=== PATIENT | male | born 1945 | race Caucasian/White ===

== ENCOUNTER 2022-02-14 07:47 | Inpatient (IN) | payer OTHER ==
[2022-02-14] VITALS (46 sets, daily range): BP systolic 85–135; BP diastolic 44–80
[~2022-02-14] VITALS: Ht 177.8 cm; Wt 84.8 kg
[~2022-02-14 07:47] MED LIST: ASPI325T4 PO; CALC500C71 PO; CALC600T10 PO; FER325T PO; GLIP10TA9 PO; GLYC1TAB18 PO; LISI20TA28 PO; METF-490 PO; MYCO500T PO; OMEG100078 PO; OYST500T29 PO; PEDICHW PO; PRE5T PO; PYRI60TA3 PO
[2022-02-14] MEDS ORDERED: cefTRIAXone 1GM/50ML D5W 50 ML IV ONE (08:15)
[2022-02-14] MEDS ORDERED: AZITHROMYCIN 500MG/ 250ML 250 ML IV ONE (08:15)
[2022-02-14] MEDS ORDERED: methylPREDNISolone SOD SUCC 125 MG/2 ML VL IV ONE (08:15)
[2022-02-14 08:39] LABS: Red Cell Distribution Width 14.4 % (11.8-14.3)
[2022-02-14 08:41] LABS: Hematocrit 36.6 % (41.0-53.0); Hemoglobin 12.3 g/dL (13.5-17.5); Mean Corpuscular Hgb Conc. 33.7 g/dL (32.0-36.0); Mean Corpuscular Volume 80.2 fL (80.0-100.0); Red Blood Cells 4.57 10^6/uL (4.5-5.90); White Blood Cell 16.5 10^3/uL (4.4-10.8)
[2022-02-14 08:44] LABS: Band Neutrophils % (manual) 0; Basophils % (manual) 0 (0.0-2.0); Blast Cells 0; Eosinophils % (manual) 0 (0-7); Lymphocytes % (manual) 0 (10.0-50.0); Metamyelocytes % 0; Myelocytes % 0; Promyelocytes % 0; Reactive Lymphocytes 0
[2022-02-14 09:01] LABS: Monocytes % (manual) 4 (0-12)
[2022-02-14 09:04] LABS: INR 1.22 (0.9-1.15); Partial Thromboplastin Time 26.2 sec (23.6-33.0)
[2022-02-14 09:15] LABS: Albumin 3.2 g/dL (3.4-5.0); BUN/Creatinine Ratio 13.3; Calcium 8.3 mg/dL (8.5-10.1); Potassium 3.6 mmol/L (3.5-5.1)
[2022-02-14] MEDS ORDERED: MAGNESIUM SULFATE 1GM/100ML 100 ML IV ONE (09:15)
[2022-02-14] MEDS ORDERED: LORazepam 2MG/ML-1ML VIAL IV ONE (09:15)
[2022-02-14 09:24] LABS: Bilirubin, Total 1.1 mg/dL (0.2-1.0); Total Protein 7.3 g/dL (6.4-8.2)
[2022-02-14] MEDS ORDERED: ETOMIDATE (2MG/ML) 20ML VIAL IV ONE ×2 (10:22→10:30)
[2022-02-14] MEDS ORDERED: MIDAZOLAM DRIP 50 mg/50mL 50 ML IV ONE (10:22)
[2022-02-14] MEDS ORDERED: SUCCINYLCHOLINE CHLORIDE 20 MG/ML 10ML VIAL IV ONE ×2 (10:23→10:30)
[2022-02-14] MEDS: PROPOFOL 100 ML IV SCH (10:30)
[2022-02-14] MEDS: MIDAZOLAM DRIP 50 mg/50mL 50 ML IV SCH ×3 (10:32→14:30)
[2022-02-14] MEDS ORDERED: PROPOFOL 100 ML IV ONE (10:51)
[2022-02-14] MEDS ORDERED: FUROSEMIDE 40 MG/4 ML VIAL IV ONE (12:00)
[2022-02-14] MEDS ORDERED: DexAMETHasone SOD PHOS 10MG/1ML VIAL INJ IV ONE (12:00)
[2022-02-14] MEDS ORDERED: ALBUMIN 25% 50 ML IV ONE (12:00)
[2022-02-14] MEDS ORDERED: SODIUM CHLORIDE 0.9% 1,000 ML IV ONE (12:00)
[2022-02-14] MEDS ORDERED: DEXTROSE (50%) 50ML SYRG IV PRN (12:15)
[2022-02-14 12:57] LABS: Cholesterol 97 mg/dL (< 200); HDL Cholesterol 43 mg/dL (40-59); LDL Cholesterol 46 mg/dL (< 100); Triglycerides 96 mg/dL (< 150)
[2022-02-14] MEDS: NOREPINEPHRINE 8 MG/250ML KIT 250 ML IV SCH (13:15)
[2022-02-14] MEDS ORDERED: NOREPINEPHRINE 8 MG/250ML KIT 250 ML IV SCH ×2 (13:30→13:45)
[2022-02-14] MEDS: ACCU-CHEK COMFORT CURVE STRIP VI SCH (18:23)
[2022-02-14] MEDS: InsuLIN REG 1unit/0.01ml Soln (100units/ml) SC SCH (18:27)
[2022-02-15] VITALS (93 sets, daily range): BP systolic 84–173; BP diastolic 47–84
[2022-02-15] MEDS: MIDAZOLAM DRIP 50 mg/50mL 50 ML IV SCH ×4 (02:30→16:41)
[2022-02-15] MEDS: PROPOFOL 100 ML IV SCH ×3 (02:31→19:41)
[2022-02-15 05:17] LABS: Basophils # (auto) 0 10 ^3/uL (0-0.2); Basophils % (auto) 0.2 % (0.0-2.0); Eosinophils # (auto) 0 10 ^3/uL (0-0.8); Hematocrit 32.9 % (41.0-53.0); Hemoglobin 11.1 g/dL (13.5-17.5); Lymphocytes # (auto) 0.3 10 ^3/uL (0.4-5.4); Lymphocytes % (auto) 1.6 % (10.0-50.0); Mean Corpuscular Hemoglobin 27.6 pg (28.0-32.0); Mean Corpuscular Hgb Conc. 33.8 g/dL (32.0-36.0); Mean Corpuscular Volume 81.5 fL (80.0-100.0); Monocytes # (auto) 0.8 10 ^3/uL (0-1.3); Monocytes % (auto) 4.6 % (0.0-12.0); Neutrophils # (auto) 15.7 10 ^3/uL (1.6-8.6); Neutrophils % (auto) 93.6 % (37.0-80.0); Red Blood Cells 4.04 10^6/uL (4.5-5.90); Red Cell Distribution Width 14.7 % (11.8-14.3); White Blood Cell 16.8 10^3/uL (4.4-10.8)
[2022-02-15 05:33] LABS: Albumin 2.7 g/dL (3.4-5.0); Calcium 8.1 mg/dL (8.5-10.1); Potassium 4.1 mmol/L (3.5-5.1)
[2022-02-15 05:36] LABS: BUN/Creatinine Ratio 18.4
[2022-02-15 05:43] LABS: Bilirubin, Total 0.4 mg/dL (0.2-1.0); Total Protein 6.5 g/dL (6.4-8.2)
[2022-02-15] MEDS: ACCU-CHEK COMFORT CURVE STRIP VI SCH ×5 (05:55→23:46)
[2022-02-15] MEDS: InsuLIN REG 1unit/0.01ml Soln (100units/ml) SC SCH ×5 (05:57→23:46)
[2022-02-15] MEDS: NOREPINEPHRINE 8 MG/250ML KIT 250 ML IV SCH (06:39)
[2022-02-15] MEDS: cefTRIAXone 1GM/50ML D5W 50 ML IV SCH (08:37)
[2022-02-15] MEDS: DexAMETHasone SOD PHOS 10MG/1ML VIAL INJ IV SCH (09:54)
[2022-02-15] MEDS: AZITHROMYCIN 500MG/ 250ML 250 ML IV SCH (09:55)
[2022-02-15] MEDS ORDERED: ENOXAPARIN SOD 40 MG/0.4 ML SYRINGE SC SCH (10:00)
[2022-02-15] MEDS: ACETAMINOPHEN 500 MG TAB PO PRN ×2 (11:00→22:08)
[2022-02-15] MEDS ORDERED: ENOXAPARIN SOD 40 MG/0.4 ML SYRINGE SC ONE (11:00)
[2022-02-15] MEDS: ENOXAPARIN SOD 80 MG/0.8ML SYRINGE SC SCH (22:07)
[2022-02-16] VITALS (87 sets, daily range): BP systolic 80–172; BP diastolic 36–79
[2022-02-16] MEDS: PROPOFOL 100 ML IV SCH ×5 (03:24→17:56)
[2022-02-16] MEDS: ACETAMINOPHEN 500 MG TAB PO PRN (04:13)
[2022-02-16] MEDS: ACCU-CHEK COMFORT CURVE STRIP VI SCH ×4 (06:00→23:49)
[2022-02-16] MEDS: InsuLIN REG 1unit/0.01ml Soln (100units/ml) SC SCH ×4 (06:00→23:51)
[2022-02-16 06:47] LABS: Anion Gap 9 (5-15); BUN/Creatinine Ratio 34.3; Blood Urea Nitrogen 37 mg/dL (7-18); Carbon Dioxide 21 mmol/L (21-32); Chloride 108 mmol/L (98-107); GFR African American 85 mL/min; GFR Non-African American 70 mL/min; Glucose 268 mg/dL (74-106); Potassium 4.3 mmol/L (3.5-5.1); Sodium 138 mmol/L (136-145)
[2022-02-16 06:48] LABS: Calcium 8.1 mg/dL (8.5-10.1)
[2022-02-16] MEDS: MIDAZOLAM DRIP 50 mg/50mL 50 ML IV SCH ×3 (07:43→17:58)
[2022-02-16 09:34] LABS: Basophils # (auto) 0.1 10 ^3/uL (0-0.2); Basophils % (auto) 0.4 % (0.0-2.0); Eosinophils # (auto) 0 10 ^3/uL (0-0.8); Lymphocytes # (auto) 0.1 10 ^3/uL (0.4-5.4); Lymphocytes % (auto) 0.8 % (10.0-50.0); Monocytes # (auto) 0.6 10 ^3/uL (0-1.3); Nucleated Red Blood Cells % 0.1 %; Red Cell Distribution Width 15.1 % (11.8-14.3)
[2022-02-16 09:37] LABS: Hematocrit 31.5 % (41.0-53.0); Hemoglobin 10.8 g/dL (13.5-17.5); Mean Corpuscular Hemoglobin 27.1 pg (28.0-32.0); Mean Corpuscular Hgb Conc. 34.4 g/dL (32.0-36.0); Monocytes % (auto) 4.6 % (0.0-12.0); Neutrophils # (auto) 11.9 10 ^3/uL (1.6-8.6); Neutrophils % (auto) 94.2 % (37.0-80.0); Red Blood Cells 3.99 10^6/uL (4.5-5.90); White Blood Cell 12.6 10^3/uL (4.4-10.8)
[2022-02-16] MEDS: ENOXAPARIN SOD 80 MG/0.8ML SYRINGE SC SCH ×2 (11:59→21:23)
[2022-02-16] MEDS: CLOPIDOGREL BISULFATE 75 MG TAB PO SCH (11:59)
[2022-02-16] MEDS: DexAMETHasone SOD PHOS 10MG/1ML VIAL INJ IV SCH (11:59)
[2022-02-16] MEDS: cefTRIAXone 1GM/50ML D5W 50 ML IV SCH (11:59)
[2022-02-16] MEDS: AZITHROMYCIN 500MG/ 250ML 250 ML IV SCH (12:00)
[2022-02-16] MEDS: METOPROLOL TARTRATE 25 MG TAB PO SCH ×2 (12:00→21:24)
[2022-02-16] MEDS: ASPirin 81 mg TAB PO SCH (12:00)
[2022-02-16] MEDS: fentaNYL Drip 2500mCg/250mlNS 250 ML IV SCH (12:02)
[2022-02-16] MEDS: NOREPINEPHRINE 8 MG/250ML KIT 250 ML IV SCH (15:57)
[2022-02-16] MEDS ORDERED: DEXTROSE (50%) 50ML SYRG IV PRN (17:30)
[2022-02-16] MEDS ORDERED: INSULIN LANTUS (GLARGINE) 1 /0.01ml (100units/ml) SC SCH (22:00)
[2022-02-17] VITALS (104 sets, daily range): BP systolic 82–146; BP diastolic 41–74
[2022-02-17] MEDS: PROPOFOL 100 ML IV SCH ×3 (02:00→18:11)
[2022-02-17] MEDS: NOREPINEPHRINE 8 MG/250ML KIT 250 ML IV SCH (02:07)
[2022-02-17] MEDS: MIDAZOLAM DRIP 50 mg/50mL 50 ML IV SCH ×2 (03:41→23:43)
[2022-02-17] MEDS: ACCU-CHEK COMFORT CURVE STRIP VI SCH ×4 (05:30→23:18)
[2022-02-17] MEDS: InsuLIN REG 1unit/0.01ml Soln (100units/ml) SC SCH ×4 (05:32→23:18)
[2022-02-17 05:44] LABS: Basophils # (auto) 0 10 ^3/uL (0-0.2); Basophils % (auto) 0.1 % (0.0-2.0); Eosinophils # (auto) 0 10 ^3/uL (0-0.8); Hemoglobin 10.2 g/dL (13.5-17.5); Lymphocytes # (auto) 0.2 10 ^3/uL (0.4-5.4); Lymphocytes % (auto) 1.7 % (10.0-50.0); Mean Corpuscular Hgb Conc. 33.9 g/dL (32.0-36.0); Mean Corpuscular Volume 79.5 fL (80.0-100.0); Monocytes # (auto) 0.6 10 ^3/uL (0-1.3); Monocytes % (auto) 6.7 % (0.0-12.0); Neutrophils # (auto) 8.1 10 ^3/uL (1.6-8.6); Neutrophils % (auto) 91.5 % (37.0-80.0); Nucleated Red Blood Cells % 0.5 %; Red Blood Cells 3.77 10^6/uL (4.5-5.90); Red Cell Distribution Width 14.8 % (11.8-14.3); White Blood Cell 8.8 10^3/uL (4.4-10.8)
[2022-02-17 05:58] LABS: BUN/Creatinine Ratio 44.6; Calcium 7.9 mg/dL (8.5-10.1); Potassium 4.1 mmol/L (3.5-5.1)
[2022-02-17] MEDS: cefTRIAXone 1GM/50ML D5W 50 ML IV SCH (09:00)
[2022-02-17] MEDS ORDERED: Glucerna 1.2 Cal 1Liter BOTTLE GT SCH (09:15)
[2022-02-17] MEDS: AZITHROMYCIN 500MG/ 250ML 250 ML IV SCH (10:03)
[2022-02-17] MEDS: DexAMETHasone SOD PHOS 10MG/1ML VIAL INJ IV SCH (10:03)
[2022-02-17] MEDS: CLOPIDOGREL BISULFATE 75 MG TAB PO SCH (10:04)
[2022-02-17] MEDS: ENOXAPARIN SOD 80 MG/0.8ML SYRINGE SC SCH ×2 (10:04→23:18)
[2022-02-17] MEDS: ASPirin 81 mg TAB PO SCH (10:04)
[2022-02-17] MEDS: METOPROLOL TARTRATE 25 MG TAB PO SCH ×2 (10:04→22:00)
[2022-02-17] MEDS: ACETAMINOPHEN 500 MG TAB PO PRN (11:11)
[2022-02-17] MEDS: fentaNYL Drip 2500mCg/250mlNS 250 ML IV SCH (11:15)
[2022-02-17 14:16] LABS: INR 1.06 (0.9-1.15)
[2022-02-17] MEDS ORDERED: LIDOCAINE 1% (LOCAL ANESTH.) PF 5ml SDV ID ONE (17:45)
[2022-02-17] MEDS: SODIUM CHLOR 0.9% PF (SALINE LOCK) 10ML VIAL/SYR IV SCH (21:49)
[2022-02-17] MEDS: INSULIN LANTUS (GLARGINE) 1 /0.01ml (100units/ml) SC SCH (23:17)
[2022-02-18] VITALS (102 sets, daily range): BP systolic 50–137; BP diastolic 44–73
[2022-02-18] MEDS: PROPOFOL 100 ML IV SCH (00:45)
[2022-02-18] MEDS: NOREPINEPHRINE 8 MG/250ML KIT 250 ML IV SCH (02:49)
[2022-02-18] MEDS: fentaNYL Drip 2500mCg/250mlNS 250 ML IV SCH (04:29)
[2022-02-18 04:40] LABS: Basophils # (auto) 0.1 10 ^3/uL (0-0.2); Basophils % (auto) 0.6 % (0.0-2.0); Eosinophils # (auto) 0 10 ^3/uL (0-0.8); Hematocrit 26.6 % (41.0-53.0); Lymphocytes # (auto) 0.3 10 ^3/uL (0.4-5.4); Lymphocytes % (auto) 2.9 % (10.0-50.0); Mean Corpuscular Hemoglobin 27.1 pg (28.0-32.0); Mean Corpuscular Hgb Conc. 33.7 g/dL (32.0-36.0); Mean Corpuscular Volume 80.6 fL (80.0-100.0); Monocytes # (auto) 0.7 10 ^3/uL (0-1.3); Monocytes % (auto) 6.1 % (0.0-12.0); Neutrophils # (auto) 9.7 10 ^3/uL (1.6-8.6); Neutrophils % (auto) 90.4 % (37.0-80.0); Nucleated Red Blood Cells % 0.9 %; Red Cell Distribution Width 14.4 % (11.8-14.3); White Blood Cell 10.8 10^3/uL (4.4-10.8)
[2022-02-18 05:00] LABS: Albumin 1.9 g/dL (3.4-5.0); Calcium 7.4 mg/dL (8.5-10.1); Potassium 4.7 mmol/L (3.5-5.1)
[2022-02-18 05:09] LABS: BUN/Creatinine Ratio 46.2; Bilirubin, Total 0.2 mg/dL (0.2-1.0); CRP High Sensitivity 18.4 mg/dL (< 0.3); Total Protein 5.7 g/dL (6.4-8.2)
[2022-02-18] MEDS: ACCU-CHEK COMFORT CURVE STRIP VI SCH ×3 (06:22→18:00)
[2022-02-18] MEDS: InsuLIN REG 1unit/0.01ml Soln (100units/ml) SC SCH ×3 (06:29→19:49)
[2022-02-18] MEDS: cefTRIAXone 1GM/50ML D5W 50 ML IV SCH (09:02)
[2022-02-18] MEDS: SODIUM CHLOR 0.9% PF (SALINE LOCK) 10ML VIAL/SYR IV SCH ×2 (09:54→21:56)
[2022-02-18] MEDS: ASPirin 81 mg TAB PO SCH (09:54)
[2022-02-18] MEDS: DexAMETHasone SOD PHOS 10MG/1ML VIAL INJ IV SCH (09:54)
[2022-02-18] MEDS: CLOPIDOGREL BISULFATE 75 MG TAB PO SCH (09:54)
[2022-02-18] MEDS: AZITHROMYCIN 500MG/ 250ML 250 ML IV SCH (09:54)
[2022-02-18] MEDS: INSULIN LANTUS (GLARGINE) 1 /0.01ml (100units/ml) SC SCH ×2 (09:55→21:57)
[2022-02-18] MEDS: METOPROLOL TARTRATE 25 MG TAB PO SCH ×2 (09:55→21:37)
[2022-02-18] MEDS: ENOXAPARIN SOD 80 MG/0.8ML SYRINGE SC SCH ×2 (09:55→21:56)
[2022-02-18] MEDS ORDERED: DEXTROSE (50%) 50ML SYRG IV PRN (12:00)
[2022-02-19] VITALS (100 sets, daily range): BP systolic 88–201; BP diastolic 42–95
[2022-02-19] MEDS: ACCU-CHEK COMFORT CURVE STRIP VI SCH ×4 (00:15→18:21)
[2022-02-19] MEDS: PROPOFOL 100 ML IV SCH ×4 (00:16→16:45)
[2022-02-19] MEDS: InsuLIN REG 1unit/0.01ml Soln (100units/ml) SC SCH ×4 (00:17→18:20)
[2022-02-19 03:41] LABS: Basophils # (auto) 0 10 ^3/uL (0-0.2); Basophils % (auto) 0.2 % (0.0-2.0); Eosinophils # (auto) 0.4 10 ^3/uL (0-0.8); Hematocrit 26.2 % (41.0-53.0); Hemoglobin 8.9 g/dL (13.5-17.5); Lymphocytes % (auto) 7.2 % (10.0-50.0); Mean Corpuscular Hemoglobin 27.3 pg (28.0-32.0); Mean Corpuscular Hgb Conc. 34.1 g/dL (32.0-36.0); Monocytes # (auto) 0.9 10 ^3/uL (0-1.3); Monocytes % (auto) 6.4 % (0.0-12.0); Neutrophils # (auto) 11.1 10 ^3/uL (1.6-8.6); Neutrophils % (auto) 83.2 % (37.0-80.0); Nucleated Red Blood Cells % 1.2 %; Red Blood Cells 3.28 10^6/uL (4.5-5.90); Red Cell Distribution Width 14.9 % (11.8-14.3); White Blood Cell 13.4 10^3/uL (4.4-10.8)
[2022-02-19 04:01] LABS: Calcium 7.4 mg/dL (8.5-10.1); Potassium 4.7 mmol/L (3.5-5.1)
[2022-02-19 04:03] LABS: BUN/Creatinine Ratio 57.4
[2022-02-19] MEDS: DexAMETHasone SOD PHOS 10MG/1ML VIAL INJ IV SCH (09:30)
[2022-02-19] MEDS: SODIUM CHLOR 0.9% PF (SALINE LOCK) 10ML VIAL/SYR IV SCH ×2 (09:30→21:34)
[2022-02-19] MEDS: cefTRIAXone 1GM/50ML D5W 50 ML IV SCH (09:30)
[2022-02-19] MEDS: ENOXAPARIN SOD 80 MG/0.8ML SYRINGE SC SCH ×2 (09:31→22:00)
[2022-02-19] MEDS: ASPirin 81 mg TAB PO SCH (09:31)
[2022-02-19] MEDS: CLOPIDOGREL BISULFATE 75 MG TAB PO SCH (09:31)
[2022-02-19] MEDS: METOPROLOL TARTRATE 25 MG TAB PO SCH ×2 (10:00→22:00)
[2022-02-19] MEDS: INSULIN LANTUS (GLARGINE) 1 /0.01ml (100units/ml) SC SCH ×2 (10:11→22:00)
[2022-02-19] MEDS: AZITHROMYCIN 500MG/ 250ML 250 ML IV SCH (10:12)
[2022-02-19] MEDS: ACETAMINOPHEN 500 MG TAB PO PRN (10:45)
[2022-02-19] MEDS ORDERED: PIPERACILLIN-TAZOB 3.375GM 100 ML IV ONE (11:45)
[2022-02-19] MEDS: MIDAZOLAM DRIP 50 mg/50mL 50 ML IV SCH (13:10)
[2022-02-19] MEDS: NOREPINEPHRINE 8 MG/250ML KIT 250 ML IV SCH (13:15)
[2022-02-19] MEDS: fentaNYL Drip 2500mCg/250mlNS 250 ML IV SCH (13:19)
[2022-02-19] MEDS: PIPERACILLIN-TAZOB 3.375GM 100 ML IV SCH (21:00)
[2022-02-20] VITALS (98 sets, daily range): BP systolic 84–170; BP diastolic 34–140
[2022-02-20 04:03] LABS: BUN/Creatinine Ratio 57.3; Calcium 7.6 mg/dL (8.5-10.1)
[2022-02-20 04:05] LABS: Hemoglobin 7.6 g/dL (13.5-17.5)
[2022-02-20 04:09] LABS: Hematocrit 22.7 % (41.0-53.0); Mean Corpuscular Hgb Conc. 33.3 g/dL (32.0-36.0); Mean Corpuscular Volume 84.1 fL (80.0-100.0); Red Cell Distribution Width 14.6 % (11.8-14.3); White Blood Cell 14.5 10^3/uL (4.4-10.8)
[2022-02-20 04:41] LABS: Basophils % (manual) 0 (0.0-2.0); Blast Cells 0; Eosinophils % (manual) 0 (0-7); Metamyelocytes % 0; Myelocytes % 0; Promyelocytes % 0; Reactive Lymphocytes 0
[2022-02-20] MEDS: PIPERACILLIN-TAZOB 3.375GM 100 ML IV SCH ×3 (04:55→20:42)
[2022-02-20] MEDS: ACCU-CHEK COMFORT CURVE STRIP VI SCH ×5 (05:53→23:40)
[2022-02-20] MEDS: InsuLIN REG 1unit/0.01ml Soln (100units/ml) SC SCH ×5 (06:17→23:48)
[2022-02-20 07:02] LABS: Band Neutrophils % (manual) 14; Lymphocytes % (manual) 9 (10.0-50.0); Monocytes % (manual) 5 (0-12)
[2022-02-20] MEDS: ASPirin 81 mg TAB PO SCH (09:36)
[2022-02-20] MEDS: CLOPIDOGREL BISULFATE 75 MG TAB PO SCH (09:37)
[2022-02-20] MEDS: METOPROLOL TARTRATE 25 MG TAB PO SCH ×2 (09:37→21:31)
[2022-02-20] MEDS: ENOXAPARIN SOD 80 MG/0.8ML SYRINGE SC SCH ×2 (09:37→21:31)
[2022-02-20] MEDS: SODIUM CHLOR 0.9% PF (SALINE LOCK) 10ML VIAL/SYR IV SCH ×2 (10:08→21:30)
[2022-02-20] MEDS: INSULIN LANTUS (GLARGINE) 1 /0.01ml (100units/ml) SC SCH (10:08)
[2022-02-20] MEDS: MIDAZOLAM DRIP 50 mg/50mL 50 ML IV SCH (10:30)
[2022-02-20] MEDS: NOREPINEPHRINE 8 MG/250ML KIT 250 ML IV SCH (11:09)
[2022-02-20] MEDS ORDERED: FUROSEMIDE 20 MG/2 ML VIAL IV ONE (11:30)
[2022-02-20] MEDS: ACETAMINOPHEN 500 MG TAB PO PRN ×2 (12:25→16:50)
[2022-02-20] MEDS ORDERED: VANCOMYCIN PER PHARMACY 0 MG IV SCH (15:15)
[2022-02-20] MEDS: fentaNYL Drip 2500mCg/250mlNS 250 ML IV SCH (15:19)
[2022-02-20] MEDS: VANCOMYCIN 1GM/250ML 250 ML IV SCH (17:29)
[2022-02-20] MEDS: PROPOFOL 100 ML IV SCH (21:50)
[2022-02-20] MEDS ORDERED: INSULIN LANTUS (GLARGINE) 1 /0.01ml (100units/ml) SC SCH (22:00)
[2022-02-21] VITALS (112 sets, daily range): BP systolic 99–167; BP diastolic 30–58
[2022-02-21] MEDS: PROPOFOL 100 ML IV SCH ×4 (02:45→23:20)
[2022-02-21 04:20] LABS: Hematocrit 14.2 % (41.0-53.0); Red Blood Cells 1.72 10^6/uL (4.5-5.90)
[2022-02-21 04:23] LABS: Mean Corpuscular Hemoglobin 27.2 pg (28.0-32.0); Mean Corpuscular Volume 82.2 fL (80.0-100.0); Red Cell Distribution Width 14.6 % (11.8-14.3); White Blood Cell 24.6 10^3/uL (4.4-10.8)
[2022-02-21 04:39] LABS: Calcium 7.4 mg/dL (8.5-10.1); Hemoglobin 4.7 g/dL (13.5-17.5)
[2022-02-21 04:40] LABS: Band Neutrophils % (manual) 0; Basophils % (manual) 0 (0.0-2.0); Blast Cells 0; Promyelocytes % 0; Reactive Lymphocytes 0
[2022-02-21 04:43] LABS: BUN/Creatinine Ratio 58.3
[2022-02-21] MEDS: PIPERACILLIN-TAZOB 3.375GM 100 ML IV SCH (04:50)
[2022-02-21 04:53] LABS: Potassium 6.1 mmol/L (3.5-5.1)
[2022-02-21] MEDS ORDERED: SODIUM BICARBONATE 8.4% INJ 50ML SYRINGE IV ONE (05:45)
[2022-02-21] MEDS ORDERED: ALBUTEROL SULF 2.5 MG/0.5ML(0.5%) NEB SOLN NEB ONE (05:45)
[2022-02-21] MEDS ORDERED: CALCIUM GLUC 1,000mg/50ml-NS 50 ML IV ONE (05:45)
[2022-02-21] MEDS ORDERED: InsuLIN REG 1unit/0.01ml Soln (100units/ml) IV ONE (05:45)
[2022-02-21] MEDS ORDERED: DEXTROSE (50%) 50ML SYRG IV ONE (05:45)
[2022-02-21] MEDS ORDERED: ALBUTEROL SULF 2.5 MG/0.5ML(0.5%) NEB SOLN ONE (05:46)
[2022-02-21] MEDS: ACCU-CHEK COMFORT CURVE STRIP VI SCH ×4 (05:51→20:23)
[2022-02-21] MEDS: InsuLIN REG 1unit/0.01ml Soln (100units/ml) SC SCH ×4 (06:00→20:22)
[2022-02-21] MEDS: ASPirin 81 mg TAB PO SCH (10:00)
[2022-02-21] MEDS: METOPROLOL TARTRATE 25 MG TAB PO SCH ×2 (10:00→22:07)
[2022-02-21] MEDS: ENOXAPARIN SOD 80 MG/0.8ML SYRINGE SC SCH (10:00)
[2022-02-21] MEDS: CLOPIDOGREL BISULFATE 75 MG TAB PO SCH (10:00)
[2022-02-21] MEDS: MIDAZOLAM DRIP 50 mg/50mL 50 ML IV SCH (10:30)
[2022-02-21] MEDS: SODIUM CHLOR 0.9% PF (SALINE LOCK) 10ML VIAL/SYR IV SCH ×2 (10:31→21:59)
[2022-02-21] MEDS: FUROSEMIDE 20 MG/2 ML VIAL IV SCH (10:32)
[2022-02-21] MEDS: VANCOMYCIN 1GM/250ML 250 ML IV SCH (10:32)
[2022-02-21] MEDS ORDERED: DexAMETHasone SOD PHOS 10MG/1ML VIAL INJ IV ONE (11:00)
[2022-02-21] MEDS ORDERED: CEFEPIME 2 GM in SODIUM CHL 0.9% 50 ML IV ONE (11:00)
[2022-02-21 11:14] LABS: Eosinophils % (manual) 1 (0-7); Lymphocytes % (manual) 10 (10.0-50.0); Metamyelocytes % 1; Monocytes % (manual) 3 (0-12); Myelocytes % 3
[2022-02-21] MEDS: fentaNYL Drip 2500mCg/250mlNS 250 ML IV SCH ×2 (11:15→22:43)
[2022-02-21] MEDS: NOREPINEPHRINE 8 MG/250ML KIT 250 ML IV SCH (13:15)
[2022-02-21] MEDS ORDERED: MEROPENEM 1GM IVPB 100 ML IV SCH (14:00)
[2022-02-21] MEDS ORDERED: DEXTROSE (50%) 50ML SYRG IV PRN (18:45)
[2022-02-21 21:50] LABS: Hemoglobin 7.1 g/dL (13.5-17.5)
[2022-02-21] MEDS ORDERED: CEFEPIME 2 GM in SODIUM CHL 0.9% 50 ML IV SCH (22:00)
[2022-02-21] MEDS: CEFEPIME 2 GM in SODIUM CHL 0.9% 50 ML IV SCH (22:05)
[2022-02-21] MEDS: PANTOPRAZOLE 40 MG/10 ML VIAL INJ IV SCH (22:05)
[2022-02-21] MEDS: INSULIN LANTUS (GLARGINE) 1 /0.01ml (100units/ml) SC SCH (22:13)
[2022-02-22] VITALS (108 sets, daily range): BP systolic 86–137; BP diastolic 36–60
[2022-02-22 00:55] LABS: Anion Gap 5 (5-15); Carbon Dioxide 28 mmol/L (21-32); Chloride 107 mmol/L (98-107); Sodium 140 mmol/L (136-145)
[2022-02-22 00:56] LABS: BUN/Creatinine Ratio 53.5; Blood Urea Nitrogen 69 mg/dL (7-18); Calcium 7.3 mg/dL (8.5-10.1); GFR African American 69 mL/min; GFR Non-African American 57 mL/min
[2022-02-22 00:57] LABS: Glucose 421 mg/dL (74-106); Potassium 6.8 mmol/L (3.5-5.1)
[2022-02-22] MEDS ORDERED: DEXTROSE (50%) 50ML SYRG IV ONE ×3 (01:30→18:45)
[2022-02-22] MEDS ORDERED: InsuLIN REG 1unit/0.01ml Soln (100units/ml) IV ONE ×3 (01:30→18:45)
[2022-02-22] MEDS ORDERED: SODIUM BICARBONATE 8.4% INJ 50ML SYRINGE IV ONE ×2 (01:30→05:00)
[2022-02-22] MEDS: ACCU-CHEK COMFORT CURVE STRIP VI SCH ×6 (03:51→20:00)
[2022-02-22] MEDS: InsuLIN REG 1unit/0.01ml Soln (100units/ml) SC SCH ×6 (03:52→21:00)
[2022-02-22 04:17] LABS: Mean Corpuscular Hemoglobin 28.8 pg (28.0-32.0); Red Blood Cells 2.36 10^6/uL (4.5-5.90)
[2022-02-22 04:19] LABS: Mean Corpuscular Hgb Conc. 34.1 g/dL (32.0-36.0); Mean Corpuscular Volume 84.5 fL (80.0-100.0); Red Cell Distribution Width 15.1 % (11.8-14.3); White Blood Cell 29.1 10^3/uL (4.4-10.8)
[2022-02-22 04:26] LABS: BUN/Creatinine Ratio 58.3; Calcium 7.7 mg/dL (8.5-10.1)
[2022-02-22 04:42] LABS: Potassium 6.5 mmol/L (3.5-5.1)
[2022-02-22 04:43] LABS: Hemoglobin 6.8 g/dL (13.5-17.5)
[2022-02-22] MEDS: VANCOMYCIN 1GM/250ML 250 ML IV SCH ×2 (04:43→17:40)
[2022-02-22 04:44] LABS: Basophils % (manual) 0 (0.0-2.0); Blast Cells 0; Eosinophils % (manual) 0 (0-7); Metamyelocytes % 0; Promyelocytes % 0; Reactive Lymphocytes 0
[2022-02-22] MEDS ORDERED: ALBUTEROL SULF 2.5 MG/0.5ML(0.5%) NEB SOLN NEB ONE (05:00)
[2022-02-22] MEDS ORDERED: CALCIUM GLUC 1,000mg/50ml-NS 50 ML IV ONE ×2 (05:00→18:45)
[2022-02-22 06:26] LABS: Band Neutrophils % (manual) 4; Lymphocytes % (manual) 6 (10.0-50.0); Monocytes % (manual) 4 (0-12); Myelocytes % 7
[2022-02-22] MEDS: INSULIN LANTUS (GLARGINE) 1 /0.01ml (100units/ml) SC SCH ×2 (09:07→22:35)
[2022-02-22 09:11] LABS: Hemoglobin 7.8 g/dL (13.5-17.5)
[2022-02-22] MEDS: SODIUM CHLOR 0.9% PF (SALINE LOCK) 10ML VIAL/SYR IV SCH ×2 (09:11→22:34)
[2022-02-22] MEDS: PANTOPRAZOLE 40 MG/10 ML VIAL INJ IV SCH ×2 (09:11→22:34)
[2022-02-22] MEDS: FUROSEMIDE 20 MG/2 ML VIAL IV SCH (09:11)
[2022-02-22] MEDS: METOPROLOL TARTRATE 25 MG TAB PO SCH ×2 (09:11→21:53)
[2022-02-22] MEDS: CEFEPIME 2 GM in SODIUM CHL 0.9% 50 ML IV SCH ×2 (09:11→22:34)
[2022-02-22 09:13] LABS: Hematocrit 23.2 % (41.0-53.0)
[2022-02-22] MEDS: PROPOFOL 100 ML IV SCH ×4 (09:59→21:30)
[2022-02-22] MEDS ORDERED: DexAMETHasone SOD PHOS 10MG/1ML VIAL INJ IV SCH (10:00)
[2022-02-22] MEDS: MIDAZOLAM DRIP 50 mg/50mL 50 ML IV SCH (10:30)
[2022-02-22] MEDS ORDERED: SODIUM ZIRCONIUM CYCL 10 GM PAK GT ONE (10:45)
[2022-02-22] MEDS: NOREPINEPHRINE 8 MG/250ML KIT 250 ML IV SCH (13:15)
[2022-02-22] MEDS ORDERED: VANCOMYCIN 1GM/250ML 250 ML IV SCH (13:30)
[2022-02-22] MEDS: fentaNYL Drip 2500mCg/250mlNS 250 ML IV SCH (15:52)
[2022-02-22 18:19] LABS: Hematocrit 21.8 % (41.0-53.0); Hemoglobin 7.3 g/dL (13.5-17.5)
[2022-02-22] MEDS ORDERED: SODIUM BICARBONATE 8.4 % INJ 50ML VIAL IV ONE (18:45)
[2022-02-23] VITALS (107 sets, daily range): BP systolic 100–150; BP diastolic 34–55
[2022-02-23] MEDS: InsuLIN REG 1unit/0.01ml Soln (100units/ml) SC SCH ×6 (00:20→19:58)
[2022-02-23] MEDS: ACCU-CHEK COMFORT CURVE STRIP VI SCH ×6 (00:25→19:58)
[2022-02-23 01:21] LABS: Hemoglobin 7.2 g/dL (13.5-17.5)
[2022-02-23 01:23] LABS: Hematocrit 21.3 % (41.0-53.0)
[2022-02-23] MEDS ORDERED: InsuLIN REG 1unit/0.01ml Soln (100units/ml) IV ONE (01:30)
[2022-02-23] MEDS ORDERED: DEXTROSE (50%) 50ML SYRG IV ONE (01:30)
[2022-02-23] MEDS ORDERED: SODIUM BICARBONATE 8.4% INJ 50ML SYRINGE IV ONE (01:30)
[2022-02-23] MEDS ORDERED: CALCIUM GLUC 1,000mg/50ml-NS 50 ML IV ONE (01:30)
[2022-02-23] MEDS ORDERED: DEXTROSE 50% SYRINGE 50 ML IV ONE (01:39)
[2022-02-23 04:09] LABS: BUN/Creatinine Ratio 68.5; Calcium 7.8 mg/dL (8.5-10.1)
[2022-02-23 04:17] LABS: Potassium 5.7 mmol/L (3.5-5.1)
[2022-02-23 04:32] LABS: Red Blood Cells 2.49 10^6/uL (4.5-5.90)
[2022-02-23 04:33] LABS: Hematocrit 21.2 % (41.0-53.0); Mean Corpuscular Hemoglobin 28.3 pg (28.0-32.0); Mean Corpuscular Hgb Conc. 33.3 g/dL (32.0-36.0); Mean Corpuscular Volume 85.1 fL (80.0-100.0); Red Cell Distribution Width 15.5 % (11.8-14.3)
[2022-02-23 04:37] LABS: White Blood Cell 30.9 10^3/uL (4.4-10.8)
[2022-02-23 04:38] LABS: Basophils % (manual) 0 (0.0-2.0); Blast Cells 0; Eosinophils % (manual) 0 (0-7); Metamyelocytes % 0; Myelocytes % 0; Promyelocytes % 0; Reactive Lymphocytes 0
[2022-02-23 04:40] LABS: Band Neutrophils % (manual) 1; Lymphocytes % (manual) 2 (10.0-50.0); Monocytes % (manual) 9 (0-12)
[2022-02-23] MEDS: fentaNYL Drip 2500mCg/250mlNS 250 ML IV SCH (08:57)
[2022-02-23] MEDS: VANCOMYCIN 1GM/250ML 250 ML IV SCH (09:21)
[2022-02-23] MEDS: METOPROLOL TARTRATE 25 MG TAB PO SCH ×2 (09:59→22:00)
[2022-02-23] MEDS: SODIUM CHLOR 0.9% PF (SALINE LOCK) 10ML VIAL/SYR IV SCH ×2 (09:59→23:02)
[2022-02-23] MEDS: INSULIN LANTUS (GLARGINE) 1 /0.01ml (100units/ml) SC SCH ×2 (10:00→22:00)
[2022-02-23] MEDS: FREE WATER GT SCH ×4 (10:19→23:02)
[2022-02-23] MEDS: CEFEPIME 2 GM in SODIUM CHL 0.9% 50 ML IV SCH ×2 (10:19→17:44)
[2022-02-23] MEDS: PANTOPRAZOLE 40 MG/10 ML VIAL INJ IV SCH ×2 (10:19→23:02)
[2022-02-23] MEDS: FUROSEMIDE 20 MG/2 ML VIAL IV SCH (10:19)
[2022-02-23] MEDS: MIDAZOLAM DRIP 50 mg/50mL 50 ML IV SCH (10:20)
[2022-02-23] MEDS: NOREPINEPHRINE 8 MG/250ML KIT 250 ML IV SCH (13:15)
[2022-02-23] MEDS: SODIUM ZIRCONIUM CYCL 10 GM PAK PO SCH ×2 (14:00→23:02)
[2022-02-23 20:35] LABS: Hematocrit 25.4 % (41.0-53.0); Hemoglobin 8.5 g/dL (13.5-17.5)
[2022-02-23 20:55] LABS: Calcium 7.8 mg/dL (8.5-10.1); Potassium 4.8 mmol/L (3.5-5.1)
[2022-02-23 20:58] LABS: BUN/Creatinine Ratio 73.1
[2022-02-24] VITALS (105 sets, daily range): BP systolic 102–162; BP diastolic 35–54
[2022-02-24] MEDS: ACCU-CHEK COMFORT CURVE STRIP VI SCH ×5 (00:28→21:40)
[2022-02-24 01:06] LABS: Hemoglobin 8.4 g/dL (13.5-17.5)
[2022-02-24 01:07] LABS: Hematocrit 25.3 % (41.0-53.0); Mean Corpuscular Hemoglobin 28.7 pg (28.0-32.0); Mean Corpuscular Hgb Conc. 33.3 g/dL (32.0-36.0); Red Blood Cells 2.94 10^6/uL (4.5-5.90); Red Cell Distribution Width 15.5 % (11.8-14.3)
[2022-02-24 01:19] LABS: BUN/Creatinine Ratio 71.4; Calcium 7.7 mg/dL (8.5-10.1); Potassium 4.7 mmol/L (3.5-5.1)
[2022-02-24 01:21] LABS: Basophils % (manual) 0 (0.0-2.0); Blast Cells 0; Eosinophils % (manual) 0 (0-7); Metamyelocytes % 0; Promyelocytes % 0; Reactive Lymphocytes 0
[2022-02-24] MEDS: fentaNYL Drip 2500mCg/250mlNS 250 ML IV SCH (01:37)
[2022-02-24] MEDS: VANCOMYCIN 1GM/250ML 250 ML IV SCH ×2 (01:58→17:23)
[2022-02-24] MEDS: FREE WATER GT SCH ×6 (01:58→20:54)
[2022-02-24 02:20] LABS: Band Neutrophils % (manual) 5; Lymphocytes % (manual) 7 (10.0-50.0); Monocytes % (manual) 6 (0-12); Myelocytes % 3
[2022-02-24] MEDS: CEFEPIME 2 GM in SODIUM CHL 0.9% 50 ML IV SCH ×3 (03:52→18:19)
[2022-02-24] MEDS: InsuLIN REG 1unit/0.01ml Soln (100units/ml) SC SCH ×5 (03:52→21:40)
[2022-02-24] MEDS: PROPOFOL 100 ML IV SCH (04:03)
[2022-02-24] MEDS: SODIUM ZIRCONIUM CYCL 10 GM PAK PO SCH ×3 (06:00→20:55)
[2022-02-24] MEDS: SODIUM CHLOR 0.9% PF (SALINE LOCK) 10ML VIAL/SYR IV SCH ×2 (08:58→19:21)
[2022-02-24] MEDS: INSULIN LANTUS (GLARGINE) 1 /0.01ml (100units/ml) SC SCH ×2 (08:58→19:20)
[2022-02-24] MEDS: MIDAZOLAM DRIP 50 mg/50mL 50 ML IV SCH (10:15)
[2022-02-24] MEDS: FUROSEMIDE 20 MG/2 ML VIAL IV SCH (10:23)
[2022-02-24] MEDS: METOPROLOL TARTRATE 25 MG TAB PO SCH ×2 (10:23→20:56)
[2022-02-24] MEDS: PANTOPRAZOLE 40 MG/10 ML VIAL INJ IV SCH ×2 (10:23→20:55)
[2022-02-24] MEDS ORDERED: DEXTROSE (50%) 50ML SYRG IV PRN (12:15)
[2022-02-24] MEDS: predniSONE 5 MG TAB PO SCH (12:21)
[2022-02-24] MEDS: NOREPINEPHRINE 8 MG/250ML KIT 250 ML IV SCH (13:15)
[2022-02-24] MEDS: FERROUS SULFATE 325mg EC TAB PO SCH ×2 (13:59→20:55)
[2022-02-24] MEDS ORDERED: FREE WATER GT SCH (14:00)
[2022-02-24] MEDS: ACETAMINOPHEN 500 MG TAB PO PRN (23:38)
[2022-02-25] VITALS (104 sets, daily range): BP systolic 111–298; BP diastolic 31–126
[2022-02-25] MEDS: FREE WATER GT SCH ×6 (01:39→22:00)
[2022-02-25] MEDS: CEFEPIME 2 GM in SODIUM CHL 0.9% 50 ML IV SCH ×3 (02:03→18:13)
[2022-02-25 04:12] LABS: Basophils # (auto) 0 10 ^3/uL (0-0.2); Basophils % (auto) 0.2 % (0.0-2.0); Eosinophils # (auto) 0.1 10 ^3/uL (0-0.8); Eosinophils % (auto) 0.3 % (0.0-7.0); Hematocrit 25.7 % (41.0-53.0); Hemoglobin 8.5 g/dL (13.5-17.5); Lymphocytes # (auto) 0.7 10 ^3/uL (0.4-5.4); Mean Corpuscular Hemoglobin 28.7 pg (28.0-32.0); Mean Corpuscular Volume 87.1 fL (80.0-100.0); Monocytes # (auto) 1.2 10 ^3/uL (0-1.3); Neutrophils # (auto) 15.4 10 ^3/uL (1.6-8.6); Neutrophils % (auto) 88.5 % (37.0-80.0); Red Blood Cells 2.95 10^6/uL (4.5-5.90); Red Cell Distribution Width 15.5 % (11.8-14.3); White Blood Cell 17.4 10^3/uL (4.4-10.8)
[2022-02-25 04:18] LABS: BUN/Creatinine Ratio 66.7; Calcium 7.5 mg/dL (8.5-10.1); Potassium 4.5 mmol/L (3.5-5.1)
[2022-02-25] MEDS: FERROUS SULFATE 325mg EC TAB PO SCH ×3 (05:26→20:31)
[2022-02-25] MEDS: SODIUM ZIRCONIUM CYCL 10 GM PAK PO SCH (05:26)
[2022-02-25] MEDS: InsuLIN REG 1unit/0.01ml Soln (100units/ml) SC SCH ×4 (05:27→22:00)
[2022-02-25] MEDS: ACCU-CHEK COMFORT CURVE STRIP VI SCH ×4 (05:27→22:00)
[2022-02-25] MEDS: predniSONE 5 MG TAB PO SCH (05:27)
[2022-02-25] MEDS: fentaNYL Drip 2500mCg/250mlNS 250 ML IV SCH (06:33)
[2022-02-25] MEDS: INSULIN LANTUS (GLARGINE) 1 /0.01ml (100units/ml) SC SCH ×2 (10:00→19:11)
[2022-02-25] MEDS: METOPROLOL TARTRATE 25 MG TAB PO SCH ×2 (10:00→20:30)
[2022-02-25] MEDS: PANTOPRAZOLE 40 MG/10 ML VIAL INJ IV SCH ×2 (10:01→20:30)
[2022-02-25] MEDS: SODIUM CHLOR 0.9% PF (SALINE LOCK) 10ML VIAL/SYR IV SCH ×2 (10:02→19:12)
[2022-02-25] MEDS: FUROSEMIDE 20 MG/2 ML VIAL IV SCH (10:02)
[2022-02-25] MEDS: PROPOFOL 100 ML IV SCH ×2 (10:18→20:31)
[2022-02-25] MEDS: VANCOMYCIN 1GM/250ML 250 ML IV SCH (10:18)
[2022-02-25] MEDS: MIDAZOLAM DRIP 50 mg/50mL 50 ML IV SCH (10:30)
[2022-02-25] MEDS: ACETAMINOPHEN 500 MG TAB PO PRN (11:03)
[2022-02-25] MEDS: NOREPINEPHRINE 8 MG/250ML KIT 250 ML IV SCH (12:11)
[2022-02-26] VITALS (41 sets, daily range): BP systolic 19–166; BP diastolic 36–61
[2022-02-26] MEDS: VANCOMYCIN 1GM/250ML 250 ML IV SCH (00:51)
[2022-02-26] MEDS: FREE WATER GT SCH ×4 (00:51→14:00)
[2022-02-26] MEDS: CEFEPIME 2 GM in SODIUM CHL 0.9% 50 ML IV SCH ×2 (01:56→10:09)
[2022-02-26 04:08] LABS: Eosinophils # (auto) 0.1 10 ^3/uL (0-0.8); Eosinophils % (auto) 0.4 % (0.0-7.0); Monocytes # (auto) 0.8 10 ^3/uL (0-1.3)
[2022-02-26 04:15] LABS: Basophils # (auto) 0 10 ^3/uL (0-0.2); Basophils % (auto) 0.3 % (0.0-2.0); Hematocrit 24.3 % (41.0-53.0); Hemoglobin 8.2 g/dL (13.5-17.5); Lymphocytes # (auto) 0.5 10 ^3/uL (0.4-5.4); Lymphocytes % (auto) 3.7 % (10.0-50.0); Mean Corpuscular Hemoglobin 29.7 pg (28.0-32.0); Mean Corpuscular Hgb Conc. 33.8 g/dL (32.0-36.0); Monocytes % (auto) 6.3 % (0.0-12.0); Neutrophils # (auto) 11.2 10 ^3/uL (1.6-8.6); Neutrophils % (auto) 89.3 % (37.0-80.0); Nucleated Red Blood Cells % 0.8 %; Red Blood Cells 2.77 10^6/uL (4.5-5.90); Red Cell Distribution Width 14.8 % (11.8-14.3); White Blood Cell 12.5 10^3/uL (4.4-10.8)
[2022-02-26 04:25] LABS: BUN/Creatinine Ratio 52.1; Calcium 7.3 mg/dL (8.5-10.1); Potassium 3.8 mmol/L (3.5-5.1)
[2022-02-26] MEDS: FERROUS SULFATE 325mg EC TAB PO SCH ×2 (05:36→16:01)
[2022-02-26] MEDS: predniSONE 5 MG TAB PO SCH (05:37)
[2022-02-26] MEDS: ACCU-CHEK COMFORT CURVE STRIP VI SCH ×2 (05:37→16:05)
[2022-02-26] MEDS: InsuLIN REG 1unit/0.01ml Soln (100units/ml) SC SCH ×2 (05:37→11:30)
[2022-02-26] MEDS: PROPOFOL 100 ML IV SCH (05:47)
[2022-02-26] MEDS: MIDAZOLAM DRIP 50 mg/50mL 50 ML IV SCH (09:55)
[2022-02-26] MEDS: PANTOPRAZOLE 40 MG/10 ML VIAL INJ IV SCH (10:07)
[2022-02-26] MEDS: FUROSEMIDE 20 MG/2 ML VIAL IV SCH (10:08)
[2022-02-26] MEDS: METOPROLOL TARTRATE 25 MG TAB PO SCH ×2 (10:10→15:58)
[2022-02-26] MEDS: SODIUM CHLOR 0.9% PF (SALINE LOCK) 10ML VIAL/SYR IV SCH (10:11)
[2022-02-26] MEDS: NOREPINEPHRINE 8 MG/250ML KIT 250 ML IV SCH (13:15)
[2022-02-26] MEDS: fentaNYL Drip 2500mCg/250mlNS 250 ML IV SCH (16:14)
== END 2022-02-26 16:50 | disposition short-term general hospital (02) | DRG 870 ==
LOC: EDBD 07:47 → ER 07:47 → TELE 11:49 → ICU CENTRL 12:59 → ICU WEST 02-16 22:13
PROVIDERS: ADMIT Registered Nurse; ATTEND Internal Medicine Pulmonary Disease
PROC: 5A1955Z Respiratory Ventilation, Greater than 96 Consecutive Hours (ICD-10-PCS; principal; 2022-02-14)
PROC: 0BH17EZ Insertion of Endotracheal Airway into Trachea, Via Natural or Artificial Opening (ICD-10-PCS; 2022-02-14)
PROC: 06HN33Z Insertion of Infusion Device into Left Femoral Vein, Percutaneous Approach (ICD-10-PCS; 2022-02-14)
PROC: 02HV33Z Insertion of Infusion Device into Superior Vena Cava, Percutaneous Approach (ICD-10-PCS; 2022-02-17)
PROC: B548ZZA Ultrasonography of Superior Vena Cava, Guidance (ICD-10-PCS; 2022-02-17)
PROC: 30233N1 Transfusion of Nonautologous Red Blood Cells into Peripheral Vein, Percutaneous Approach (ICD-10-PCS; 2022-02-21)
DX: A41.9 Sepsis, unspecified organism (principal); U07.1 COVID-19; J12.82 Pneumonia due to coronavirus disease 2019; I21.4 Non-ST elevation (NSTEMI) myocardial infarction; J96.01 Acute respiratory failure with hypoxia; R65.21 Severe sepsis with septic shock; J96.02 Acute respiratory failure with hypercapnia; N17.9 Acute kidney failure, unspecified; E87.0 Hyperosmolality and hypernatremia; I13.0 Hypertensive heart and chronic kidney disease with heart failure and stage 1 through stage 4 chronic kidney disease, or unspecified chronic kidney disease; D62 Acute posthemorrhagic anemia; G70.00 Myasthenia gravis without (acute) exacerbation; N18.2 Chronic kidney disease, stage 2 (mild); E11.22 Type 2 diabetes mellitus with diabetic chronic kidney disease; E66.9 Obesity, unspecified; K40.20 Bilateral inguinal hernia, without obstruction or gangrene, not specified as recurrent; E87.5 Hyperkalemia; E11.65 Type 2 diabetes mellitus with hyperglycemia; I25.10 Atherosclerotic heart disease of native coronary artery without angina pectoris; I50.9 Heart failure, unspecified; K57.90 Diverticulosis of intestine, part unspecified, without perforation or abscess without bleeding; S70.11XA Contusion of right thigh, initial encounter; X58.XXXA Exposure to other specified factors, initial encounter; K76.0 Fatty (change of) liver, not elsewhere classified; R16.0 Hepatomegaly, not elsewhere classified; N40.0 Benign prostatic hyperplasia without lower urinary tract symptoms; R29.6 Repeated falls; Z80.42 Family history of malignant neoplasm of prostate; Z82.3 Family history of stroke; I25.2 Old myocardial infarction; Z82.49 Family history of ischemic heart disease and other diseases of the circulatory system; Z83.3 Family history of diabetes mellitus; Z87.891 Personal history of nicotine dependence; Z95.5 Presence of coronary angioplasty implant and graft; Z90.49 Acquired absence of other specified parts of digestive tract; Z91.041 Radiographic dye allergy status; Y93.89 Activity, other specified; Y92.89 Other specified places as the place of occurrence of the external cause; Y99.8 Other external cause status; Z95.0 Presence of cardiac pacemaker
CPT/HCPCS: 31500; 36415; 36556; 36569; 36600; 71045; 74176; 76881; 80048; 80053; 80061; 80202; 82306; 82728; 82805; 82962; 83036; 83605; 83615; 83880; 84132; 84443; 84484; 85007; 85014; 85018; 85025; 85027; 85379; 85610; 85730; 86141; 86850; 86900; 86901; 86920; 87040; 87070; 87081; 87086; 87205; 93005; 93970; 94003; 94640; 96365; 96367; 96368; 96375; 99291; C9113; G0378; J0330; J0696; J1100; J1815; J2250; J2543; J2704; J7060